=== PATIENT | male | born 1965 | race Caucasian/White ===

== ENCOUNTER 2020-10-18 12:47 | Emergency (ER) | payer SELFPAY ==
[~2020-10-18 12:47] MED LIST: NORCO 5-325 TA1 EACH PO; ZOFRAN4 MG PO
[2020-10-18 13:10] LABS: BASOPHIL 0.2 % (0-2); EOSINOPHIL 0.1 % (0-5); HCT 47.9 % (42.0-52.0); HGB 16.3 g/dl (13.2-18.0); MCH 31.9 pg (25.0-31.0); MCV 93.7 fL (78.0-100.0); MONOCYTE 3.5 % (0-12); MPV 9.8 fL (6.0-9.5); NEUTROPHIL 87.7 % (41-80); NRBC 0; PLT 323 K/uL (150-400); RBC 5.11 M/uL (4.70-6.00)
[2020-10-18 13:26] LABS: BILIRUBIN - TOTAL 1.4 mg/dL (0.2-1.0); BUN/CREAT RATIO (CALC) 19.2 RATIO; CREATININE 0.73 mg/dL (0.67-1.17); GLOBULIN (CALCULATION) 2.9 g/dL; INR 0.91 (0.9-1.2); POTASSIUM 4.4 mmol/L (3.5-5.1); PROTHROMBIN TIME 11.6 SECONDS (11.4-13.6); TOTAL PROTEIN 6.9 g/dL (6.4-8.2)
[2020-10-18 13:27] LABS: PTT 30.2 SECONDS (22.2-34.7)
== END 2020-10-18 13:46 | disposition other institution (70) ==
LOC: FER 12:47
PROVIDERS: Emergency Medicine
DX: I21.09 ST elevation (STEMI) myocardial infarction involving other coronary artery of anterior wall (principal); F17.200 Nicotine dependence, unspecified, uncomplicated
CPT/HCPCS: 36415; 71045; 71275; 72193; 80053; 84484; 85025; 85610; 85730; 93005; J1644; J2405; Q9967

== ENCOUNTER 2021-06-13 15:12 | Inpatient (IN) | payer SELFPAY ==
[~2021-06-13] VITALS: Ht 175.3 cm; Wt 64.0 kg
[2021-06-13 16:08] LABS: BASOPHIL 0.2 % (0-2); EOSINOPHIL 0 % (0-5); HCT 47.5 % (42.0-52.0); HGB 16.1 g/dl (13.2-18.0); LYMPHOCYTE 9.5 % (15-48); MCH 32.7 pg (25.0-31.0); MCHC 33.9 g/dL (32.0-36.0); MCV 96.3 fL (78.0-100.0); MONOCYTE 3.7 % (0-12); MPV 10.1 fL (6.0-9.5); NEUTROPHIL 86.1 % (41-80); NRBC 0; PLT 346 K/uL (150-400); RBC 4.93 M/uL (4.70-6.00); RDW 12.6 % (11.5-14.0); WBC 19.3 K/uL (4.0-10.5)
[2021-06-13 16:20] LABS: ALBUMIN 3.6 g/dL (3.4-5.0); BILIRUBIN - TOTAL 1.1 mg/dL (0.2-1.0); BUN/CREAT RATIO (CALC) 13.9 RATIO; CREATININE 0.79 mg/dL (0.67-1.17); GLOBULIN (CALCULATION) 3.8 g/dL; POTASSIUM 4.4 mmol/L (3.5-5.1); TOTAL PROTEIN 7.4 g/dL (6.4-8.2)
[2021-06-13 16:21] LABS: INR 0.93 (0.9-1.2); PROTHROMBIN TIME 11.9 SECONDS (11.8-13.4); PTT 31.4 SECONDS (24.4-34.7)
[2021-06-13 20:23] LABS: BILIRUBIN NEGATIVE (NEGATIVE); BLOOD TRACE-INTACT Ery/uL (NEGATIVE); CLARITY CLEAR (CLEAR); COLOR YELLOW (YELLOW); GLUCOSE (U) NORMAL (NORMAL); LEUKOCYTES NEGATIVE Leu/uL (NEGATIVE); NITRITE NEGATIVE (NEGATIVE); PROTEIN NEGATIVE (NEGATIVE); SPECIFIC GRAVITY <=1.005 (1.001-1.030); UROBILINOGEN 0.2 mg/dL (0.2-1.0); pH 6.5 (5.0-9.0)
[2021-06-13] MEDS ORDERED: LIPITOR40 MG PO (21:58)
[2021-06-13] MEDS ORDERED: PRINIVIL10 MG PO (21:59)
[2021-06-13] MEDS ORDERED: LOPRESSOR25 MG PO (21:59)
[2021-06-13] MEDS ORDERED: ASPIRIN81 MG PO (22:00)
[2021-06-13] MEDS ORDERED: PLAVIX75 MG PO (22:03)
[2021-06-14 06:04] LABS: BASOPHIL 0.2 % (0-2); EOSINOPHIL 0.3 % (0-5); HCT 40.7 % (42.0-52.0); HGB 13.4 g/dl (13.2-18.0); LYMPHOCYTE 16.9 % (15-48); MCH 32.6 pg (25.0-31.0); MCHC 32.9 g/dL (32.0-36.0); MONOCYTE 3.5 % (0-12); MPV 10.6 fL (6.0-9.5); NEUTROPHIL 78.6 % (41-80); NRBC 0; PLT 249 K/uL (150-400); RBC 4.11 M/uL (4.70-6.00); RDW 12.8 % (11.5-14.0); WBC 11.2 K/uL (4.0-10.5)
[2021-06-14 06:24] LABS: BUN/CREAT RATIO (CALC) 13.2 RATIO; CREATININE 0.76 mg/dL (0.67-1.17); POTASSIUM 3.8 mmol/L (3.5-5.1)
--- NOTE | 2021-06-14 08:49 | NUR ---
PATIENT STATED HIS NGT JUST SLID OUT, PRIOR TO THIS HAD BEEN ASSESSED BY MYSELF AND TAPE SECURE AND IN PLACE. HE STATED THAT IT'S NOT GOING BACK IN. MD INFORMED OF ABOVE, XRAY RESULTS NOTED, NO NEW ORDERS OTHER THAN NPO EXCEPT MEDS
--- NOTE | 2021-06-14 16:35 | NUR ---
CALL TO DR KIRKPATRICK TO CLARIFY DIET PATIENT ASKING FOR WATER. DR KIRKPATRICK STATED SINCE ASSESSMENT HE WANTS TO KEEP HIM NPO EXCEPT MEDS AND WILL RECONSIDER DIET IN AM
[2021-06-15 05:45] LABS: BASOPHIL 0.2 % (0-2); EOSINOPHIL 0.4 % (0-5); HCT 40.9 % (42.0-52.0); HGB 13.7 g/dl (13.2-18.0); LYMPHOCYTE 11.1 % (15-48); MCH 32.3 pg (25.0-31.0); MCHC 33.5 g/dL (32.0-36.0); MCV 96.5 fL (78.0-100.0); MONOCYTE 4.2 % (0-12); MPV 10.3 fL (6.0-9.5); NEUTROPHIL 83.3 % (41-80); NRBC 0; PLT 246 K/uL (150-400); RBC 4.24 M/uL (4.70-6.00); RDW 12.5 % (11.5-14.0); WBC 13.1 K/uL (4.0-10.5)
[2021-06-15 06:04] LABS: BUN/CREAT RATIO (CALC) 12.9 RATIO; CREATININE 0.7 mg/dL (0.67-1.17); MAGNESIUM 2.2 mg/dL (1.8-2.4)
[2021-06-16 04:55] LABS: BASOPHIL 0.2 % (0-2); EOSINOPHIL 1.4 % (0-5); HGB 12.9 g/dl (13.2-18.0); LYMPHOCYTE 18.2 % (15-48); MCH 32.9 pg (25.0-31.0); MCHC 33.9 g/dL (32.0-36.0); MCV 96.9 fL (78.0-100.0); MONOCYTE 7.2 % (0-12); NEUTROPHIL 72.7 % (41-80); NRBC 0; PLT 232 K/uL (150-400); RBC 3.92 M/uL (4.70-6.00); RDW 12.4 % (11.5-14.0); WBC 10.5 K/uL (4.0-10.5)
[2021-06-16 06:16] LABS: BILIRUBIN - TOTAL 1.1 mg/dL (0.2-1.0); BUN/CREAT RATIO (CALC) 4.3 RATIO; CREATININE 0.69 mg/dL (0.67-1.17); GLOBULIN (CALCULATION) 3.3 g/dL
[2021-06-16 06:24] LABS: TOTAL PROTEIN 5.3 g/dL (6.4-8.2)
[2021-06-16] MEDS ORDERED: METRONIDAZOLE500 MG PO (14:28)
[2021-06-16] MEDS ORDERED: LEVAQUIN750 MG PO (14:28)
[2021-06-16] MEDS ORDERED: PERCOCET 5-3251 EACH PO (14:28)
== END 2021-06-16 15:56 | disposition home or self-care (01) | DRG 391 ==
LOC: FER 15:12 → FMS 19:55
PROVIDERS: Hospitalist; Internal Medicine; Nurse Practitioner Family; ADMIT Family Medicine
PROC: 8E0ZXY6 Isolation (ICD-10-PCS; principal; 2021-06-14)
DX: K57.20 Diverticulitis of large intestine with perforation and abscess without bleeding (principal); U07.1 COVID-19; J12.82 Pneumonia due to coronavirus disease 2019; I10 Essential (primary) hypertension; I25.10 Atherosclerotic heart disease of native coronary artery without angina pectoris; E78.00 Pure hypercholesterolemia, unspecified; F17.200 Nicotine dependence, unspecified, uncomplicated; K21.9 Gastro-esophageal reflux disease without esophagitis; F10.10 Alcohol abuse, uncomplicated; Z98.890 Other specified postprocedural states; Z95.5 Presence of coronary angioplasty implant and graft; Z79.82 Long term (current) use of aspirin; Z79.02 Long term (current) use of antithrombotics/antiplatelets; Z79.899 Other long term (current) drug therapy; I25.2 Old myocardial infarction
CPT/HCPCS: 36415; 71045; 74018; 74019; 80048; 80053; 81001; 83605; 83735; 84145; 84484; 85025; 85610; 85730; 87040; 93005; 94760; 96372; C9113; J1650; J2270; J2405; J2543; J3411; J3475; J3480; J7030; Q9967; U0002